=== PATIENT | male | born 1965 | race Caucasian/White ===

== ENCOUNTER 2020-03-25 16:17 | Emergency (ER) | payer BC ==
[2020-03-25 17:13] LABS: HEMOGLOBIN 16.7 gm/dl (14.0-17.5); RED BLOOD COUNT 5.16 M/UL (4.20-5.50); WHITE BLOOD COUNT 10.7 K/UL (4.5-11.0)
[2020-03-25 17:44] LABS: BUN/CREATININE RATIO 16 (0-10)
[2020-03-25] MEDS ORDERED: ZOFRAN ODT 4 MG4 MG PO (21:46)
[2020-03-25] MEDS ORDERED: BENTYL 20MG TAB20 MG PO (21:46)
== END 2020-03-25 21:50 | disposition home or self-care (01) ==
LOC: ER1 16:17
PROVIDERS: Emergency Medicine
DX: R10.31 Right lower quadrant pain (principal); R10.11 Right upper quadrant pain; R11.0 Nausea; F17.200 Nicotine dependence, unspecified, uncomplicated; Z87.19 Personal history of other diseases of the digestive system; Z88.8 Allergy status to other drugs, medicaments and biological substances
CPT/HCPCS: 36415; 80053; 81001; 83690; 85025; 96374; 96375; 96376; 99284; J2270; J2405; J7030; Q9967

== ENCOUNTER → 2020-08-18 | Outpatient (CLI) | payer BC ==
[~2020-08-18] MED LIST: BENTYL 20MG TAB20 MG PO; ZOFRAN ODT 4 MG4 MG PO
== END ==
LOC: KOH-I 08-16 16:00
DX: M89.9 Disorder of bone, unspecified (principal); M22.42 Chondromalacia patellae, left knee; M25.462 Effusion, left knee
CPT/HCPCS: 73552; 73721

== ENCOUNTER 2020-12-20 09:06 | Observation (INO) | payer BC ==
[~2020-12-20] VITALS: Ht 190.5 cm; Wt 97.5 kg
[2020-12-20 10:03] LABS: HEMOGLOBIN 17.1 gm/dl (14.0-17.5); RED BLOOD COUNT 5.3 M/UL (4.20-5.50); WHITE BLOOD COUNT 11.1 K/UL (4.5-11.0)
[2020-12-20 10:30] LABS: BUN/CREATININE RATIO 21 (0-10)
[2020-12-20] MEDS ORDERED: HYDROCODON-ACE1 EAC6 PO (13:18)
[2020-12-20] MEDS ORDERED: MULTIVITAMIN1 EACH PO (13:19)
[2020-12-21 03:03] LABS: WHITE BLOOD COUNT 8.5 K/UL (4.5-11.0)
[2020-12-21 03:19] LABS: RED BLOOD COUNT 4.7 M/UL (4.20-5.50)
[2020-12-21 03:41] LABS: BUN/CREATININE RATIO 17 (0-10)
[2020-12-21] MEDS ORDERED: ASPIRIN EC81 MG PO (12:30)
== END 2020-12-21 17:52 | disposition home or self-care (01) ==
LOC: ER1 09:06 → MED SURG 4 11:08 → CDU 11:08 → MED SURG 4 12:35
PROVIDERS: Physician Assistant; ADMIT Internal Medicine
DX: R07.89 Other chest pain (principal); I25.10 Atherosclerotic heart disease of native coronary artery without angina pectoris; R20.2 Paresthesia of skin; K44.9 Diaphragmatic hernia without obstruction or gangrene; F17.210 Nicotine dependence, cigarettes, uncomplicated; Z87.820 Personal history of traumatic brain injury; Z20.822 Contact with and (suspected) exposure to COVID-19; Z98.61 Coronary angioplasty status; Z90.49 Acquired absence of other specified parts of digestive tract; Z87.19 Personal history of other diseases of the digestive system; Z79.82 Long term (current) use of aspirin; Z79.899 Other long term (current) drug therapy; Z82.49 Family history of ischemic heart disease and other diseases of the circulatory system; Z80.42 Family history of malignant neoplasm of prostate
CPT/HCPCS: ECHO; 36415; 70450; 70551; 71045; 80048; 80053; 80061; 82550; 82553; 83690; 83874; 84484; 85025; 93005; 93306; 93880; C9113; G0378; J1885; U0002